=== PATIENT | male | born 1980 | race Two or more races ===

== ENCOUNTER → 2018-01-08 | Outpatient (CLI) | payer MEDICAID | END | disposition home or self-care (01) | LOC: XYW 09:25 | PROVIDERS: ATTEND Internal Medicine Cardiovascular Disease | DX: R07.89 Other chest pain (principal) | CPT/HCPCS: 93306 ==

== ENCOUNTER 2020-09-18 14:51 | Emergency (ER) | payer MEDICAID ==
[~2020-09-18] VITALS: Ht 177.8 cm; Wt 91.6 kg
[2020-09-18 15:07] LABS: Urine WBC None Seen /hpf (0 - 3)
[2020-09-18 15:17] LABS: Urine Bacteria NONE SEEN /hpf (None Seen); Urine Blood Negative /uL (Negative); Urine Specific Gravity 1.017 (1.001-1.035)
[2020-09-18 17:04] VITALS: BP 136/93
== END 2020-09-18 18:22 | disposition home or self-care (01) ==
LOC: ER 14:51
DX: N41.0 Acute prostatitis (principal)
CPT/HCPCS: 74176; 81001

== ENCOUNTER 2021-07-10 20:17 | Emergency (ER) | payer MEDICAID ==
[~2021-07-10] VITALS: Ht 177.8 cm; Wt 90.7 kg
[2021-07-10 20:19] VITALS: BP 165/95
== END 2021-07-10 20:44 | disposition left against medical advice (07) ==
LOC: ER 20:17
DX: S80.262A Insect bite (nonvenomous), left knee, initial encounter (principal); S80.261A Insect bite (nonvenomous), right knee, initial encounter; Z53.21 Procedure and treatment not carried out due to patient leaving prior to being seen by health care provider; W57.XXXA Bitten or stung by nonvenomous insect and other nonvenomous arthropods, initial encounter; Y93.89 Activity, other specified; Y92.89 Other specified places as the place of occurrence of the external cause; Y99.8 Other external cause status

== ENCOUNTER 2024-12-18 18:59 | Emergency (ER) | payer MEDICAID ==
[~2024-12-18] VITALS: Ht 177.8 cm; Wt 92.2 kg
[2024-12-18 19:29] LABS: Hematocrit 45.0 % (41.0-53.0); Hemoglobin 15.5 g/dL (13.5-17.5); Mean Corpuscular Hemoglobin 29.5 pg (28.0-32.0); Mean Corpuscular Volume 85.6 fL (80.0-100.0); Nucleated Red Blood Cells % 0.7 %
--- NOTE | 2024-12-18 19:32 | ED.PDOC ---
History of Present Illness HPI Comments 43 y/o M presents with c/c of sternal chest pain. Patient endorses on persisting pain all day, today, since unprovoked and atraumatic onset, this morning, at 0500. Pain radiates to epigastric area. No modifiers. No reported cardiac history or pertinent surgical, family, or social history. He works out, occas ionally, and admits to being stressed, lately. Denial of any dyspnea, nausea, vomiting, or further associated symptoms. Chief Complaint: Abdominal Pain Time Seen by MD: 19:15 Primary Care Provider: LUDY Prado Notes: Nurses Notes, Medications, Allergies Allergies: Coded Allergies: NO KNOWN ALLERGIES (Unverified , 09/18/20) Information Source: Patient Mode of Arrival: Ambulatory Severity: Moderate Timing: Hours Duration: Since onset Prehospital treatment: None Past Medical History PAST MEDICAL HISTORY: Denies Surgical History: Tonsillectomy Family History Family History: Reviewed,noncontributory to illness Social History Smoker: Non-Smoker Alcohol: Denies ETOH Use Drugs: Denies Drug Use Lives In: Home All Other Systems: Reviewed and Negative (Comprehensive review of systems are negative unless stated in HPI) Physical Exam General Appearance: Moderate Distress HEENT: Normal ENT Inspection, Pharynx Normal, TMs Normal Neck: Full Range of Motion, Non-Tender, Normal, Normal Inspection Respiratory: Chest Non-Tender, Lungs Clear, No Accessory Muscle Use, No Respiratory Distress, Normal Breath Sounds Cardiovascular: Bradycardia, No Edema, No JVD, No Murmur, No Gallop, Normal Peripheral Pulses Breast Exam: Deferred Gastrointestinal: No Organomegaly, Non Tender, No Pulsatile Mass, Normal Bowel Sounds, Soft Genitalia: Deferred Pelvic: Deferred Rectal: Deferred Extremities: No calf tenderness, Normal capillary refill, Normal inspection, Normal range of motion, Non-tender, No pedal edema Musculoskeletal : Apperance: Normal Neurologic: Alert, foam dispenser II-XII nml as Tested, No Motor Deficits, Normal Affect, Normal Mood, No Sensory Deficits Cerebellar Function: Normal Reflexes: Normal Skin: Dry, Normal Color, Warm Peripheral Pulses: 3+ Radial (R), 3+ Radial (L) Lymphatic: No Adenopathy Was a procedure done? Was a procedure done?: No EKG EKG : Pulse Rate (adult): 57 [place]: Normal Cardiac Rhythm: NSR Block: None Hypertrophy: None ST: Normal Differential Dx Considerations may include: MD, PE, ACS, URI, PNA, angina, anxiety, viral syndrome, among others X-Ray, Labs, Meds, VS Vital Signs Date Time Temp Pulse Resp B/P (MAP) Pulse Ox O2 Delivery O2 Flow Rate FiO2 12/18/24 21:32 66 19 96 Room Air 12/18/24 21:32 98.6 66 19 142/89 (106) 96 98.6 12/18/24 19:32 57 12/18/24 19:09 57 12/18/24 19:00 98.2 58 18 144/90 100 98.2 Lab Test 12/18/24 19:18 Range/Units White Blood Count 7.3 4.4-10.8 10^3/uL Red Blood Count 5.26 4.5-5.90 10^6/uL Hemoglobin 15.5 13.5-17.5 g/dL Hematocrit 45.0 41.0-53.0 % Mean Corpuscular Volume 85.6 80.0-100.0 fL Mean Corpuscular Hemoglobin 29.5 28.0-32.0 pg Mean Corpuscular Hemoglobin Concent 34.5 32.0-36.0 g/dL Red Cell Distribution Width 13.4 11.8-14.3 % Platelet Count 215 140-450 10^3/uL Mean Platelet Volume 9.0 6.9-10.8 fL Neutrophils (%) (Auto) 67.2 37.0-80.0 % Lymphocytes (%) (Auto) 23.1 10.0-50.0 % Monocytes (%) (Auto) 7.7 0.0-12.0 % Eosinophils (%) (Auto) 1.1 0.0-7.0 % Basophils (%) (Auto) 0.9 0.0-2.0 % Neutrophils # (Auto) 4.9 1.6-8.6 10 ^3/uL Lymphocytes # (Auto) 1.7 0.4-5.4 10 ^3/uL Monocytes # (Auto) 0.6 0-1.3 10 ^3/uL Eosinophils # (Auto) 0.1 0-0.8 10 ^3/uL Basophils # (Auto) 0.1 0-0.2 10 ^3/uL Nucleated Red Blood Cells 0.7 % Sodium Level 141 136-145 mmol/L Potassium Level 4.4 3.5-5.1 mmol/L Chloride Level 103 98-107 mmol/L Carbon Dioxide Level 27 20-31 mmol/L Anion Gap 11 5-15 Blood Urea Nitrogen 14 9-23 mg/dL Creatinine 0.78 0.700-1.30 mg/dL Glomerular Filtration Rate Calc 112 >90 mL/min BUN/Creatinine Ratio 17.9 10.0-20.0 Serum Glucose 97 74-106 mg/dL Calcium Level 10.3 8.7-10.4 mg/dL Total Bilirubin 1.2 H 0.2-1.0 mg/dL Aspartate Amino Transferase (AST) 30 13-40 U/L Alanine Aminotransferase (ALT) 57 H 7-40 U/L Alkaline Phosphatase 77 46-116 U/L Total Protein 7.6 5.7-8.2 g/dL Albumin 5.2 H 3.2-4.8 g/dL Lipase 58 H 12-53 U/L Current Medications Medications (Trade) Dose Ordered Sig/Angie Route Start Time Stop Time Status Last Admin Belladonna Alkaloids/ Phenobarbital ( Elixir) 10 ml ONCE ONCE PO 12/18/24 19:30 12/18/24 19:31 DC 12/18/24 21:32 Al Hydrox/Mg Hydrox/Simethicone (Maalox Plus) 30 ml ONCE ONCE PO 12/18/24 19:30 12/18/24 19:31 DC 12/18/24 21:29 Lidocaine HCl (Xylocaine 2% Viscous) 15 ml ONCE ONCE PO 12/18/24 19:30 12/18/24 19:31 DC 12/18/24 21:30 [place] [id number] Ph: [phone] DIAGNOSTIC IMAGING Diagnostic Imaging Report : [id number] Signed PATIENT: OZZY NAVARRO ACCT: [id number] UNIT: [id number] : 1980 LOC: ER ROOM / BED: / AGE / SEX: 43 / M ADM STATUS: REG ER SERVICE [id number] ORDERING PHYSICIAN: KATYA RICHARDS RESIDENT PROCEDURE(s): ABPL - CT AB PEL WO CON-NO ORAL OR IV REASON: R/o pancreatitis ORDER NUMBER(s): [id number], ACCESSION NUMBER(s): [id number] Exam: CT CT AB PEL WO CON-NO ORAL OR IV History: R/o pancreatitis Comparison Study: None Technique: Multidetector spiral CT of the abdomen was performed from lung bases to pubic symphysis. Imaging was performed without IV contrast. Axial, coronal and sagittal multiplanar reformats were obtained from the axial data set by the technologist. Radiation dose : 1. Abdomen/Pelvis: CTDIvol 8.29 mGy, DLP 453.52 mGy*cm. Findings: Evaluation of solid organs is limited due to lack of intravenous contrast use. Lung Bases: No acute or significant lung base finding. Normal heart size. No pleural or pericardial effusion. Liver: Hepatosteatosis. Gallbladder and biliary Tree: Unremarkable Spleen: Mildly enlarged measuring 13.2cm Pancreas: The pancreas is grossly normal in appearance. Adrenal Glands: Unremarkable Kidneys: Left kidney is absent hypertrophy right kidney. No stones or hydronephrosis. Bladder: Grossly unremarkable for degree of distention. Bowel: The stomach is grossly normal in appearance. Small bowel and colon are normal in caliber and distribution. Normal appendix is visualized in the right lower quadrant without findings of appendicitis. Ascites: Absent Lymphadenopathy: No mesenteric, retroperitoneal or periportal lymphadenopathy. Abdominal wall and Mesentery: Unremarkable. Vasculature: The visualized abdominal aorta is normal in size and caliber. Evaluation of abdominal and pelvic vessels is limited due to lack of intravenous contrast. Pelvic Organs: Unremarkable Musculoskeletal: No aggressive focal bony lesions, acute fractures or dislocation. IMPRESSION: No acute abdominal or pelvic findings. Radiation optimization: All CT scans at this facility use at least one of these dose optimization techniques: automated exposure control mA and/or kV adjustment per patient size (includes targeted exams where dose is matched to clinical indication) or iterative reconstruction. ATED BY: AGUILAR PICKERING MD DICTATED DATE/TIME: 12/18/242222 SIGNED BY: AGUILAR PICKERING MD SIGNED DATE/TIME: 12/18/242222 CC: Patient alert. Complaining of chest pain. Vitals stable. Answering questions. Could be gastritis. EKG does show bradycardia. Age his risk factor. Explained to the patient. Continue monitoring. Time of 1ST Reevaluation: 19:45 Reevaluation 1ST: Unchanged Patient Education/Counseling: Treatment, Need For Follow Up Family Education/Counseling: No Family Present SEPSIS Sepsis Screen Date sepsis recognized/suspect: Dec 18, 2024 Time Sepsis recognized/suspect: 1901 Recent Procedure: No On Antibiotic Therapy: No Respiratory Rate >20: No Heart Rate >90: No Temp<36 C (96.8 F) or >38.3 C: No SBP <90 or MAP <65 mmHG: No New Acute Mental Status Change: No Is the patient on CPAP, BIPAP,: No Physician Orders Troponin-I Hs (12/19/24 00:00) Troponin-I Hs (12/19/24 03:00) Troponin-I Hs (12/19/24 06:00) Ct Ab Pel Wo Con-No Oral Or Iv (12/18/24 21:46) Vital Signs Date Time Temp Pulse Resp B/P (MAP) Pulse Ox O2 Delivery O2 Flow Rate FiO2 12/18/24 21:32 66 19 96 Room Air 12/18/24 21:32 98.6 66 19 142/89 (106) 96 98.6 12/18/24 19:32 57 12/18/24 19:09 57 12/18/24 19:00 98.2 58 18 144/90 100 98.2 Laboratory Tests Test 12/18/24 19:18 White Blood Count 7.3 10^3/uL (4.4-10.8) Medications Medications Dose Ordered Sig/Angie Route Start Time Stop Time Status Last Admin Dose Admin Al Hydrox/Mg Hydrox/Simethicone 30 ml ONCE ONCE PO 12/18/24 19:30 12/18/24 19:31 DC 12/18/24 21:29 Belladonna Alkaloids/ Phenobarbital 10 ml ONCE ONCE PO 12/18/24 19:30 12/18/24 19:31 DC 12/18/24 21:32 Lidocaine HCl 15 ml ONCE ONCE PO 12/18/24 19:30 12/18/24 19:31 DC 12/18/24 21:30 Departure 1 Departure Time of Disposition: 19:33 Impression: Primary Impression: Chest pain of unknown etiology Disposition: ADMITTED INPATIENT Admit to: Med Surg Condition: Guarded Critical Care Note Critical Care Time?: Yes (90 min-critical care time only) Stability Stability form required: No Heart Score Heart Score: Heart Score Response (Comments) Value History Slightly Suspicious 0 EKG Normal 0 Age 45-64 1 Risk Factors 1 or 2 risk factors 1 Troponin Normal limit 0 Total 2 I personally scribed for MICHAEL KILGORE MD ([email or web address]) on 12/18/24 at 19:32. Electronically submitted by Noel Wiggins ([email or web address]). I personally scribed for MICHAEL KILGORE MD ([email or web address]) on 12/18/24 at 22:34. Electronically submitted by Noel Wiggins ([email or web address]). MICHAEL KILGORE MD Dec 18, 2024 19:32
[2024-12-18 19:46] LABS: Alkaline Phosphatase 77 U/L (46-116); Anion Gap 11 (5-15); BUN/Creatinine Ratio 17.9 (10.0-20.0); Blood Urea Nitrogen 14 mg/dL (9-23); Calcium 10.3 mg/dL (8.7-10.4); Carbon Dioxide 27 mmol/L (20-31); Chloride 103 mmol/L (98-107); Glucose 97 mg/dL (74-106); Potassium 4.4 mmol/L (3.5-5.1); Sodium 141 mmol/L (136-145); Total Protein 7.6 g/dL (5.7-8.2)
[2024-12-18 19:47] LABS: Alanine Aminotransferase 57 U/L (7-40); Albumin 5.2 g/dL (3.2-4.8); Bilirubin, Total 1.2 mg/dL (0.2-1.0); Lipase 58 U/L (12-53)
--- NOTE | 2024-12-18 21:15 | ECG ---
[facility] Test Date: 2024-12-18 Test Time: 19:09:48 Pat Name: OZZY NAVARRO Department: Room: Gender: M Audio Technician: GEOVANNY : 1980 Requested By: EMERGENCY EMERGENCY Order Number: [id number] Reading MD: Measurements Intervals [address] [place] Rate: 57 P: 11 HI: 147 QRS: 40 QRSD: 98 T: 18 QT: 409 QTc: 399 Interpretive Statements Sinus rhythm Please click the below link to view image of tracing.
[2024-12-18] MEDS: MAALOX PLUS or MAALOX 30 ML PO ONE (21:29)
[2024-12-18] MEDS: LIDOCAINE VISCOUS 2% 15ML UD PO ONE (21:30)
[2024-12-18 21:32] VITALS: BP 142/89; PULSE 66; RESP 19; TEMP 98.6; O2SAT 96
[2024-12-18] MEDS: DONNATAL 5ml ORAL Elix (BELLADONNA ALK-PHENOBARB) PO ONE (21:32)
--- NOTE | 2024-12-18 22:26 | DVH ---
Exam: CT CT AB PEL WO CON-NO ORAL OR IV History: R/o pancreatitis Comparison Study: None Technique: Multidetector spiral CT of the abdomen was performed from lung bases to pubic symphysis. I maging was performed without IV contrast. Axial, coronal and sagittal multiplanar reformats were obta ined from the axial data set by the technologist. Radiation dose : 1. Abdomen/Pelvis: CTDIvol 8.29 mGy, DLP 453.52 mGy*cm. Findings: Evaluation of solid organs is limited due to lack of intravenous contrast use. Lung Bases: No acute or significant lung base finding. Normal heart size. No pleural or pericardial effusion. Liver: Hepatosteatosis. Gallbladder and biliary Tree: Unremarkable Spleen: Mildly enlarged measuring 13.2cm Pancreas: The pancreas is grossly normal in appearance. Adrenal Glands: Unremarkable Kidneys: Left kidney is absent hypertrophy right kidney. No stones or hydronephrosis. Bladder: Grossly unremarkable for degree of distention. Bowel: The stomach is grossly normal in appearance. Small bowel and colon are normal in caliber and d istribution. Normal appendix is visualized in the right lower quadrant without findings of appendicit is. Ascites: Absent Lymphadenopathy: No mesenteric, retroperitoneal or periportal lymphadenopathy. Abdominal wall and Mesentery: Unremarkable. Vasculature: The visualized abdominal aorta is normal in size and caliber. Evaluation of abdominal a nd pelvic vessels is limited due to lack of intravenous contrast. Pelvic Organs: Unremarkable Musculoskeletal: No aggressive focal bony lesions, acute fractures or dislocation. IMPRESSION: No acute abdominal or pelvic findings. Radiation optimization: All CT scans at this facility use at least one of these dose optimization david hniques: automated exposure control mA and/or kV adjustment per patient size (includes targeted exam s where dose is matched to clinical indication) or iterative reconstruction.
== END 2024-12-18 22:44 | disposition left against medical advice (07) ==
LOC: ER 19:01
DX: R07.89 Other chest pain (principal); Z90.89 Acquired absence of other organs
CPT/HCPCS: 36415; 74176; 80053; 83690; 85025; 93005